=== PATIENT | female | born 1965 | race Caucasian/White ===

== ENCOUNTER 2021-07-08 14:30 | Emergency (ER) | payer BC ==
--- OUTSIDE RECORDS SUMMARY | 2021-07-08 14:33 | XMS REPORT | Continuity of Care Document ---
:1965 Author Organization [facility] t Address [address] [place] [address] Care Team Providers Name Role Phone MAYCO Attending Clinician Unavailable Anastasia_Karlos Attending Clinician Unavailable Therapy, Covid Infusion Attending Clinician Unavailable Jared ARANDA, A Attending Clinician Karlos COLEMAN Attending Clinician Unavailable Doctor Unassigned, Name Attending Clinician Unavailable Anastasia_Karlos Admitting Clinician Unavailable Payers Payer Name Policy Type Policy Number Effective Date Expiration Date [facility] [id number] 2016 00:00:00 Problems Condition Condition Condition Status Onset Resolution Last Treating Co mments Source Name Details Category Date Date Treatment Clinician Date Strain of Strain of Problem Active [place] rotator Rotator da cuff Cuff Medical capsule Capsule Group anxiety Problem 2013-05-31 Primo adrian 04:01:08 l anxiety Tip Problem 05/31/2013 [facility] knee pain Problem 2013-05-31 Me moria 04:01:08 l knee Tip pain Problem 05/31/2013 [facility] mitral Problem 2013-05-31 Memor ia valve 04:01:08 l prolapse1 mitral Shannan nn valve prolapse1 Problem 05/31/2013 1About 5 yrs ago pt states she felt like her heart was racing. 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 She did an ekg and it showed PVC. She went to the ER and was given a beta arlene. She followed up with a cardiologi st and was told it was anxiety and stress related. No follow up needed. [facility] Social Shop Allergies, Adverse Reactions, Alerts Allergy Allergy Status Severity Reaction(s) Onset Inactive Treating Comm ents Source Name Type Date Date Clinician NO KNOWN Drug Active Univers ALLERGIE Class ity of S [facility] Social History Social Habit Start Date Stop Date Quantity Comments Source Sex Assigned At [birth year] [facility] 00:00:00 00:00:00 [facility] Smoking Status Start Date Stop Date Source Former Smoker [facility] Unknown if ever smoked [facility] Medications Ordered Filled Start Stop Current Ordering Indication Dosage Frequency Signature Comments Components Source Medication Medication Date Date Medication? Clinician (SIG) Name Name casirivimab 2020- No [id number] 1200mg 1,200 mg, Univers -imdevimab 09-10 IV ity of (REGEN-COV 20:00: 19:53 [place], [place] ([place] 00 :00 ONCE, [facility] 1,200 mg in 09/10/20 at [facility] NaCl 0.9% 1500, For (NS) 60 mL 1 IV infusion dose
Ad medical lab technician as an IV infusion via pump or gravity over at least 60 minutes through an intravenou s line containing a sterile, in-line or add-on 0.2-micron polyethers ulfone (PES) filter.&nb sp;Stable 36 hours refrigerat ed; 4 hours at room temperatur e. &nbs p;
casirivimab 2020- No [id number] 1200mg Univers -imdevimab 09-10 ity of (REGEN-COV 20:00: 19:53 [place] (EUA)) 00 :00 Medical 1,200 mg in Branch NaCl 0.9% (NS) 60 mL IV infusion diphenhydrA No Yulia 25 mg = Me moria MINE 4-23 [place] 0.5 mL, l 16:08: Injection, [place] 00 IV Push, Once PRN for itching, first dose 05/29/13 11:08:00 CDT Saline Lock No Yulia 10 mL, Mem oria Flush - [place] Soln, IV l 16:08: Push, As Indicated PRN for flush, first dose 05/29/13 11:08:00 CDT LR 1,000 mL No Yulia 1,000 mL, Memoria -23 [place] IV, 75 l 16:08: mL/hr, start date 05/29/13 11:08:00 CDT Dilaudid No Yulia 0.5 mg = Primo adrian 05-29 [place] 0.25 mL, l 16:08: Injection, IV Push, q10min PRN for pain severe (7-10), first dose 05/29/13 11:08:00 CDT morphine No Yulia 2 mg = 0.2 Me moria - [place] mL, l 16:08: Injection, IV Push, q5min PRN for Pain Moderate (4-6), first dose 05/29/13 11:08:00 CDT ondansetron No Yulia 8 mg = 1 M emoria 05-29 [place] tabs, l 16:08: Tab-Dis, Oral, Once PRN for nausea/vom iting, first dose 05/29/13 11:08:00 CDT droperidol No Yulia 0.625 mg = Memoria - [place] 0.25 mL, l 16:08: Injection, IV Push, Once PRN for severe nausea, first dose 05/29/13 11:08:00 CDT promethazin No Yulia 12.5 mg = Memoria e - [place] 0.5 mL, l 16:08: Injection, IM, Once PRN for severe nausea, first dose 05/29/13 11:08:00 CDT Lactated No Yulia IV, start Mem oria Ringers 05-29 [place] date l Injection 16:07: 05/29/13 Herm 00 11:07:00 CDT, stop date 05/29/13 11:07:00 CDT ondansetron No Yulia 4 mg = 2 M emoria 4-23 [place] mL, l 15:47: Injection, [place] 00 IV, Once, first dose 05/29/13 10:47:00 CDT, stop date 05/29/13 10:47:00 CDT Misc No Samuel Yo 1,000 mL, Nd moria Medication 05-29 Soln-IV, l 15:37: IV, Once, first dose 05/29/13 10:37:00 CDT, stop date 05/29/13 10:37:00 CDT fentaNYL No Yulia 25 mcg = Primo adrian 4- [place] 0.5 mL, l 15:35: Injection, [place] 00 IV, Once, first dose 05/29/13 10:35:00 CDT, stop date 05/29/13 10:35:00 CDT fentaNYL No Yulia 25 mcg = Primo adrian 4-23 [place] 0.5 mL, l 15:25: Injection, Tip 00 IV, Once, first dose 05/29/13 10:25:00 CDT, stop date 05/29/13 10:25:00 CDT dexamethaso No Yulia 4 mg = 1 M emoria ne 4-23 [place] mL, l 15:17: Injection, [place] 00 IV, Once, first dose 05/29/13 10:17:00 CDT, stop date 05/29/13 10:17:00 CDT phenylephri No Yulia 0.05 mg = Memoria ne - [place] 0.01 mL, l 15:09: Injection, [place] 00 IV, Once, first dose 05/29/13 10:09:00 CDT, stop date 05/29/13 10:09:00 CDT lidocaine No Yulia 2 mL, Memori a -23 [place] Injection, l 15:00: IV, Once, Tip 00 first dose 05/29/13 10:00:00 CDT, stop date 05/29/13 10:00:00 CDT propofol No Yulia 140 mg = Primo adrian 4-23 [place] 14 mL, l 15:00: Emulsion, Tip 00 IV, Once, first dose 05/29/13 10:00:00 CDT, stop date 05/29/13 10:00:00 CDT ceFAZolin No Yulia 1 gm, Memori a 4-23 [place] Powder-Inj l 14:56: , IV, Once, first dose 05/29/13 9:56:00 CDT, stop date 05/29/13 9:56:00 CDT midazolam No Yulia 2 mg = 2 Mem oria 4-23 [place] mL, l 14:54: Injection, IV, Once, first dose 05/29/13 9:54:00 CDT, stop date 05/29/13 9:54:00 CDT fentaNYL No Yulia 100 mcg = Mem oria 4-23 [place] 2 mL, l 14:54: Injection, IV, Once, first dose 05/29/13 9:54:00 CDT, stop date 05/29/13 9:54:00 CDT ketorolac No Samuel Pinsky 30 mg = 1 Memoria 4-23 mL, l 14:33: Injection, IV, Once, first dose 05/29/13 9:33:00 CDT, stop date 05/29/13 9:33:00 CDT metoclopram No Samuel Pinsky 10 mg = 2 Memoria finn 4-23 mL, l 14:09: Injection, IV, Once, first dose 05/29/13 9:09:00 CDT, stop date 05/29/13 9:09:00 CDT famotidine No Samuel Pinsky 20 mg, Memoria 4-23 Injection, l 14:09: IV, Once, first dose 05/29/13 9:09:00 CDT, stop date 05/29/13 9:09:00 CDT scopolamine No Samuel Pinsky 1 patches, Memoria 4-23 Film-ER, l 14:09: IV, Once, first dose 05/29/13 9:09:00 CDT, stop date 05/29/13 9:09:00 CDT ceFAZolin No Román Orth 1 gm, IV Memoria 4-23 Piggyback, l 14:00: Once, [place] infuse over 30 minutes, first dose 05/29/13 9:00:00 CDT, stop date 05/29/13 9:00:00 CDT Lidocaine No Román Orth 0.2 mL, Memoria 2% 0.2 mL 4- Injection, l IV Start 13:18: Subcutaneo Her orellana [[facility]] 00 us, Once PRN for other (see comment), first dose 05/29/13 8:18:00 CDT LR 1,000 mL No Román Orth 1,000 mL, Memoria 4-23 IV, 30 l 13:18: mL/hr, [place] 00 start date 05/29/13 8:18:00 CDT Fish Oil Yes 1 caps, Memori a oral 4-21 Oral, l capsule 20:25: Daily, # Bryson n 00 100 caps, 0 Refill(s), supplement Atarax Yes 10 mg, Memoria 4-21 Oral, TID, l 20:23: PRN [place] 00 anxiety, Pt uses 1/2 tab as needed, 0 Refill(s), anxietyPt uses 1/2 tab as needed Wellbutrin Yes 1.5tab, Primo adrian 100 mg oral 4-21 Oral, BID, l tablet 19:35: # 60 tabs, Shannan nn 00 0 Refill(s), anxiety Vital Signs Vital Name Observation Time Observation Value Comments Source Systolic blood 2020-09-10 20:55:00 107 mm[Hg] Univer sity [facility] Diastolic blood 2020-09-10 20:55:00 65 mm[Hg] [facility] 2020-09-10 20:55:00 77 /min [facility] Body temperature 2020-09-10 20:55:00 36.28 Shama [facility] Respiratory rate 2020-09-10 20:55:00 16 /min [facility] Oxygen saturation in 2020-09-10 20:55:00 98 /min [facility] Arterial blood by [facility] Pulse oximetry [place] Body height 2020-09-10 18:53:00 152.4 cm [facility] Body weight 2020-09-10 18:53:00 73.936 kg [facility] BMI 2020-09-10 18:53:00 31.83 kg/m2 [facility] Height 2020-07-08 00:00:00 60 [in_i] [facility] BMI (Body Mass 2020-07-08 00:00:00 31.4 kg/m2 [facility] Medical Index) Group Body Weight 2020-07-08 00:00:00 2576 [oz_av] [facility] BP Diastolic 2020-05-27 00:00:00 79 mm[Hg] [facility] Height 2020-05-27 00:00:00 60 [in_i] [facility] BMI (Body Mass 2020-05-27 00:00:00 31.4 kg/m2 [facility] Medical Index) Group BP Systolic 2020-05-27 00:00:00 128 mm[Hg] [facility] Body Weight 2020-05-27 00:00:00 2576 [oz_av] [facility] Respitory Rate 2013-05-29 17:53:00 Memori al [place] Heart Rate 2013-05-29 17:53:00 Memorial Tip Diastolic (mm Hg) 2013-05-29 17:53:00 Mem orial Tip Systolic (mm Hg) 2013-05-29 17:53:00 Primo rial [place] Diastolic (mm Hg) 2013-05-29 16:50:00 Mem orial Tip Respitory Rate 2013-05-29 16:50:00 Memori al Tip Heart Rate 2013-05-29 16:50:00 Memorial Tip Systolic (mm Hg) 2013-05-29 16:50:00 Primo rial [place] Respitory Rate 2013-05-29 16:40:00 Memori al Tip Systolic (mm Hg) 2013-05-29 16:40:00 Primo rial [place] Diastolic (mm Hg) 2013-05-29 16:40:00 Mem orial [place] Heart Rate 2013-05-29 16:40:00 Memorial Tip Heart Rate 2013-05-29 16:30:00 [facility] [place] Temperature Oral (F) 2013-05-29 13:54:00 36.6 Shama [facility] Heart Rate 2013-05-29 13:54:00 [facility] [place] Weight 2013-05-29 13:54:00 [facility] Tip Height 2013-05-29 13:54:00 152.40 cm [facility] Heart Rate 2013-05-27 18:51:00 [facility] [place] Height 2013-05-27 18:51:00 153 cm [facility] Tip Weight 2013-05-27 18:51:00 [facility] Procedures Procedure Date / Time Performing Clinician Source Performed [id number] CONSENT 2020-09-10 05:01:00 Doctor Unassigned, No Unive [facility] tummy tuck and breast 2010-02-06 00:00:00 Sudarshan Babin lift Hysterectomy 2008-02-07 00:00:00 [facility] Her roellana section 1984-02-07 00:00:00 [facility] trang tubal reversal [facility] Plan of Care Planned Activity Planned Date Details Comments Source Diagnostic Test 2020-07-08 SARS CoV 2 RNA [facility] Pending 00:00:00 (COVID-19), QL, [facility] respiratory specimen [code = SARS CoV 2 RNA (COVID-19), QL[facility], respiratory specimen] Encounters Start End Encounter Admission Attending Care Care Encounter Source Date/Time Date/Time Type Type Clinicians Facility Department ID 2021-04-22 2021-04-22 Outpatient MAYCO, [facility] [id number] [place] 00:00:00 00:00:00 TONI [address] 2021-04-22 2021-04-22 Outpatient MAYCO, [facility] [id number] [place] 00:00:00 00:00:00 TONI [address] 2021-04-09 2021-04-09 Outpatient MAYCO, [facility] [id number] [place] 00:00:00 00:00:00 TONI [address] 2021-04-09 2021-04-09 Outpatient MAYCO, [facility] [id number] [place] 00:00:00 00:00:00 TONI [address] 2021-04-09 2021-04-09 Outpatient MAYCO, [facility] [id number] [place] 00:00:00 00:00:00 TONI 7[facility] 2021-04-09 2021-04-09 Outpatient MAYCO, [facility] [id number] [place] 00:00:00 00:00:00 TONI 870 [facility] 2021-04-09 2021-04-09 Outpatient MAYCO, [facility] [id number] [place] 00:00:00 00:00:00 TONI 896 [facility] 2021-04-09 2021-04-09 Outpatient MAYCO, [facility] [id number] [place] 00:00:00 00:00:00 TONI 982 [facility] 2021-04-09 2021-04-09 Outpatient MAYCO, [facility] [id number] [place] 00:00:00 00:00:00 TONI 468 [facility] 2020-09-26 2020-09-26 [facility] [id number] [place] 04:32:00 04:32:00 0821 Medical Group 2020-09-10 2020-09-10 Nurse Therapy, Adc Covid Infusion [facility] [id number] [facility] 13:21:12 13:51:12 Visit Michael Coleman [id number] ity [facility] [id number] [place] [facility] [id number] [place] [address] [place] 2020-09-10 2020-09-10 Outpatient Bianca COLEMAN [facility] [id number] Univers 13:30:00 13:30:00 MICHAEL bailey of [facility] 2020-09-10 2020-09-10 Orders Doctor SERVIN [id number] Univers 00:00:00 00:00:00 Only Unassigned, KANDACE [id number] ity of [facility] [id number] Zeke as [phone] [address] 2020-08-22 2020-08-22 [facility] [id number] [place] 03:13:00 03:13:00 0717 Medical Group 2020-07-18 2020-07-18 Outpatient Koudela_A MMG [facility] [id number] [place] 06:31:00 06:31:00 0612 [facility] 2020-07-08 2020-07-08 Outpatient Koudela_A MMG [facility] [id number] -[id number] [place] 09:28:00 09:28:00 0602 [facility] 2020-07-08 2020-07-08 Outpatient Koudela_A MMG [facility] [id number] -[id number] [place] 09:28:00 09:28:00 0608 [facility] 2020-07-08 2020-07-08 Luann [facility] [place] - [id number] M atagor 00:00:00 00:00:00 Discovery Anastasia da PA-C: [address] [place] [address] , Ph. 2020-07-07 2020-07-07 Outpatient Koudela_A MMG [facility] [id number] -[id number] [place] 04:57:00 04:57:00 0601 [facility] 2020-07-02 2020-07-02 Outpatient Koudela_A MMG [facility]G [id number] [place] 11:09:00 11:09:00 0527 [facility] 2020-05-28 2020-05-28 Outpatient Koudela_A MMG [facility] [id number] [place] 12:03:00 12:03:00 0422 [facility] 2020-05-28 2020-05-28 Outpatient Koudela_A MMG [facility] [id number] [place] 12:03:00 12:03:00 0429 [facility] 2020-05-27 2020-05-27 Outpatient Koudela_A MMG MMG [id number] -[id number] [place] 02:38:00 02:38:00 0421 [facility] 2020-05-27 2020-05-27 Luann [facility] [place] - [id number] M at[place]or 00:00:00 00:00:00 Discovery Anastasia da PA-C: [address] [place] [address] , Ph. 2013-05-29 2013-05-29 Outpatient nullFlavo [facility] [id number] [facility] 08:15:57 12:45:00 bianca Whelan Results This patient has no known results.
[2021-07-08] MEDS ORDERED: LIDOCAINE 1% W/EPI 1:100,000 MDV 50 ML VIAL ONE (14:57)
[2021-07-08] MEDS ORDERED: LIDOCAINE 1% W/EPI 1:100,000 MDV 20 ML VIAL ONE (14:58)
--- NOTE | 2021-07-08 15:16 | EDPHYS ---
Physician Documentation [facility] Name: Omaira Medina Age: 55 yrs Sex: Female : 1965 Arrival Date: 07/08/2021 Time: 14:32 Bed 12 Private MD: ED Physician Aubrey Phan HPI: 07/08 15:10 This 55 yrs old Female presents to ER via Ambulatory with complaints of yeni hormone implant problem. 15:10 The patient presents with an abscess of the right gluteus lizeth. Description: yeni localized, erythematous. Onset: The symptoms/episode began/occurred 1 week(s) ago. Possible cause(s): implant. Associated signs and symptoms: The patient has no apparent associated signs or symptoms. Modifying factors: the symptoms are alleviated by remaining still, the symptoms are aggravated by pressure, sitting, squeezing the lesion and expressing the contents. Severity of symptoms: At their worst the symptoms were mild, in the emergency department the symptoms are unchanged. The patient has experienced similar episodes in the past, several times. 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 - Social history:: Smoking status: Patient denies any tobacco usage or history of. - Family history:: not pertinent. ROS: 15:10 Constitutional: Negative for fever, chills, and weight loss, Eyes: Negative for injury, yeni pain, redness, and discharge, ENT: Negative for injury, pain, and discharge, Neck: Negative for injury, pain, and swelling, Cardiovascular: Negative for chest pain, palpitations, and edema, Respiratory: Negative for shortness of breath, cough, wheezing, and pleuritic chest pain, Abdomen/GI: Negative for abdominal pain, nausea, vomiting, diarrhea, and constipation, Back: Negative for injury and pain, : Negative for injury, bleeding, discharge, and swelling, MS/Extremity: Negative for injury and deformity, Neuro: Negative for headache, weakness, numbness, tingling, and seizure, Psych: Negative for depression, anxiety, suicide ideation, homicidal ideation, and hallucinations, Allergy/Immunology: Negative for hives, rash, and allergies, Endocrine: Negative for neck swelling, polydipsia, polyuria, polyphagia, and marked weight changes, Hematologic/Lymphatic: Negative for swollen nodes, abnormal bleeding, and unusual bruising. 15:10 Skin: Positive for abscess, cellulitis, swelling. Exam: 15:10 Constitutional: This is a well developed, well nourished patient who is awake, alert, yeni and in no acute distress. Head/Face: Normocephalic, atraumatic. Eyes: Pupils equal round and reactive to light, extra-ocular motions intact. Lids and lashes normal. Conjunctiva and sclera are non-icteric and not injected. Cornea within normal limits. Periorbital areas with no swelling, redness, or edema. ENT: Nares patent. No nasal discharge, no septal abnormalities noted. Tympanic membranes are normal and external auditory canals are clear. Oropharynx with no redness, swelling, or masses, exudates, or evidence of obstruction, uvula midline. Mucous membranes moist. Neck: Trachea midline, no thyromegaly or masses palpated, and no cervical lymphadenopathy. Supple, full range of motion without nuchal rigidity, or vertebral point tenderness. No Meningismus. Chest/axilla: Normal chest wall appearance and motion. Nontender with no deformity. No lesions are appreciated. Cardiovascular: Regular rate and rhythm with a normal S1 and S2. No gallops, murmurs, or rubs. Normal PMI, no JVD. No pulse deficits. Respiratory: Lungs have equal breath sounds bilaterally, clear to auscultation and percussion. No rales, rhonchi or wheezes noted. No increased work of breathing, no retractions or nasal flaring. Abdomen/GI: Soft, non-tender, with normal bowel sounds. No distension or tympany. No guarding or rebound. No evidence of tenderness throughout. Back: No spinal tenderness. No costovertebral tenderness. Full range of motion. MS/ Extremity: Pulses equal, no cyanosis. Neurovascular intact. Full, normal range of motion. Neuro: Awake and alert, GCS 15, oriented to person, place, time, and situation. Cranial nerves II-XII grossly intact. Motor strength 5/5 in all extremities. Sensory grossly intact. Cerebellar exam normal. Normal gait. Psych: Awake, alert, with orientation to person, place and time. Behavior, mood, and affect are within normal limits. 15:10 Skin: abscess, that is small, of the right gluteus lizeth, with fluctuance, that is mild, with induration, cellulitis, that is mild, induration, that is mild is noted, injury, is not appreciated, lesion(s), are not present, no rash present. Vital Signs: 14:38 BP 129 / 88; Pulse 92; Resp 17; Temp 98.8(TE); Pulse Ox 99% on R/A; Weight 72.57 kg tw2 (R); Height 5 ft. 0 in. (152.40 cm); Pain 5/10; 15:10 BP 126 / 88; Pulse 91; Resp 18; Pulse Ox 99% on R/A; ld1 14:38 Body Mass Index 31.25 (72.57 kg, 152.40 cm) tw2 Procedures: 15:18 I \T\ D: Incision and drainage was performed for an abscess of the right right gluteus yeni lizeth Prepped with Betadine, Anesthetized with 6 ml's 1% Lidocaine w/ Epi. Incised with none. Drained small amount the patient tolerated the procedure well, implant removed. MDM: 14:49 Patient medically screened. yeni 15:13 Differential diagnosis: abscess, cellulitis. Data reviewed: vital signs, nurses notes. 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 Counseling: I had a detailed discussion with the patient and/or guardian regarding: the historical points, exam findings, and any diagnostic results supporting the discharge/admit diagnosis, lab results, radiology results, the need for outpatient follow up, a general surgeon. 07/08 15:09 Order name: Dressing - Wound; Complete Time: 15:12 yeni 07/08 15:09 Order name: Gloves, Sterile; Complete Time: 15:12 yeni 07/08 15:09 Order name: Setup Suture Tray; Complete Time: 15:12 yeni 07/08 15:09 Order name: Wound Care; Complete Time: 15:12 yeni Administered Medications: 15:12 Drug: Lidocaine-Epinephrine -1%: (1:100,000) 5 ml Volume: 20 ml; Route: Infiltration; ld1 15:12 Drug: Bactroban (mupirocin) Ointment 2 % 1 application Route: Topical; Site: affected ld1 area; 15:21 Drug: Bactrim (trimethoprim-sulfamethoxazole) (160 mg-800 mg (DS) 1 tablet Route: PO; ld1 Disposition Summary: 07/08/21 15:15 Discharge Ordered Location: Home yeni Problem: new yeni Symptoms: have improved yeni Condition: Stable yeni Diagnosis - Cutaneous abscess of other sites - right buttock yeni Followup: yeni - With: Private Physician - When: 5 - 6 days - Reason: Recheck today's complaints, Re-evaluation by your physician Followup: yeni - With: Emanuel Tripathi MD - When: 2 - 3 days - Reason: Recheck today's complaints, Re-evaluation by your physician Discharge Instructions: - Discharge Summary Sheet yeni - Skin Abscess yeni - Skin Abscess, [id number] [facility] Forms: - Medication Reconciliation Form [facility] - Thank You Letter yeni - Antibiotic Education yeni - Prescription Opioid Use [facility] Prescriptions: - Bactrim DS 800-160 mg Oral Tablet - take 1 tablet by ORAL route every 12 hours for 10 days; 20 tablet; Refills: 0, yeni Product Selection Permitted - mupirocin 2 % Topical ointment - apply 1 application by TOPICAL route 3 times per day; 1 tube; Refills: 0, jm Product Selection Permitted Signatures: Aubrey Phan MD MD cha Wise, Tara RN RN tw2 Brigitte Murphy RN RN ld1 Corrections: (The following items were deleted from the chart) 14:41 14:40 Home Meds: None; tw2 tw
--- NOTE | 2021-07-08 15:16 | ER ---
Nurse's Notes [facility] Name: Omaira Medina Age: 55 yrs Sex: Female : 1965 Arrival Date: 07/08/2021 Time: 14:32 Bed 12 Private MD: Diagnosis: Cutaneous abscess of other sites-right buttock Presentation: 07/08 14:38 Chief complaint: Patient states: i have a hormone pellet that is trying to expel itself tw2 and i am afraid it is making an abscess on my right upper gluteal area. Coronavirus screen: At this time, the client does not indicate any symptoms associated with coronavirus-19. Ebola Screen: Patient denies travel to an Ebola-affected area in the 21 days before illness onset. Initial Sepsis Screen: Does the patient meet any 2 criteria? No. Patient's initial sepsis screen is negative. Does the patient have a suspected source of infection? No. Patient's initial sepsis screen is negative. Risk Assessment: Do you want to hurt yourself or someone else? Patient reports no desire to harm self or others. Onset of symptoms was July 08, 2021. 14:38 Method Of Arrival: Ambulatory tw2 14:38 Acuity: ALONDRA 3 tw2 Triage Assessment: 14:40 General: Appears in no apparent distress. slender, well groomed, Behavior is calm, tw2 cooperative, appropriate for age. Pain: Complains of pain in right lower back and right gluteus lizeth. 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 - Social history:: Smoking status: Patient denies any tobacco usage or history of. - Family history:: not pertinent. Screenin:44 Abuse screen: Denies threats or abuse. Nutritional screening: No deficits noted. tw2 Tuberculosis screening: No symptoms or risk factors identified. Fall Risk None identified. Assessment: 15:10 General: Appears in no apparent distress. comfortable, Behavior is calm, cooperative, ld1 appropriate for age. Pain: Complains of pain in right gluteus lizeth Pain does not radiate. Pain currently is 8 out of 10 on a pain scale. Neuro: Level of Consciousness is awake, alert, obeys commands, Oriented to person, place, time, situation. Cardiovascular: Capillary refill < 3 seconds Patient's skin is warm and dry. Respiratory: Airway is patent Respiratory effort is even, unlabored. GI: Abdomen is flat, non-distended. : No signs and/or symptoms were reported regarding the genitourinary system. EENT: No signs and/or symptoms were reported regarding the EENT system. Derm: No signs and/or symptoms reported regarding the dermatologic system. Musculoskeletal: No signs and/or symptoms reported regarding the musculoskeletal system. Vital Signs: 14:38 BP 129 / 88; Pulse 92; Resp 17; Temp 98.8(TE); Pulse Ox 99% on R/A; Weight 72.57 kg tw2 (R); Height 5 ft. 0 in. (152.40 cm); Pain 5/10; 15:10 BP 126 / 88; Pulse 91; Resp 18; Pulse Ox 99% on R/A; ld1 14:38 Body Mass Index 31.25 (72.57 kg, 152.40 cm) tw2 ED Course: 14:32 Patient arrived in ED. am2 14:40 Triage completed. tw2 14:41 Arm band placed on. tw2 14:42 Placed in gown. Bed in low position. Call light in reach. tw2 14:48 Aubrey Phan MD is Attending Physician. [facility] 15:09 Jamilah Douglas RN is Primary Nurse. ap3 15:10 No provider procedures requiring assistance completed. Patient did not have IV access ld1 during this emergency room visit. 15:15 Emanuel Tripathi MD is Referral Physician. yeni Administered Medications: 15:12 Drug: Lidocaine-Epinephrine -1%: (1:100,000) 5 ml Volume: 20 ml; Route: Infiltration; ld1 15:12 Drug: Bactroban (mupirocin) Ointment 2 % 1 application Route: Topical; Site: affected ld1 area; 15:21 Drug: Bactrim (trimethoprim-sulfamethoxazole) (160 mg-800 mg (DS) 1 tablet Route: PO; ld1 Medication: 15:10 VIS not applicable for this client. ld1 Outcome: 15:10 Discharged to home ambulatory. ld1 15:10 Condition: stable 15:10 Discharge instructions given to patient, Instructed on discharge instructions, follow up and referral plans. Demonstrated understanding of instructions, follow-up care, medications, Prescriptions given X 1. 15:10 No charge visit due to suture removal. 15:15 Discharge ordered by MD. jaime 15:21 Patient left the ED. ld1 Signatures: Aubrey Phan MD MD cha Wise, Tara, RN RN tw2 Jamilah Harris am2 Jamilah Douglas RN RN ap3 Brigitte Murphy RN RN ld1 Corrections: (The following items were deleted from the chart) 14:41 14:40 Home Meds: None; tw2 tw2
[2021-07-08] MEDS ORDERED: SMZ./TMP. 800/160 MG TABLET ONE (15:19)
[2021-07-08 15:35] VITALS: TEMP 98.8; O2SAT 99
[2021-07-08 15:44] VITALS: BP 126/88
== END 2021-07-08 15:21 | disposition home or self-care (01) ==
LOC: ER 14:30
PROC: 0H98XZZ Drainage of Buttock Skin, External Approach (ICD-10-PCS; principal; 2021-07-08)
DX: L02.31 Cutaneous abscess of buttock (principal)